=== PATIENT | female | born 1955 | race Hispanic/Latino ===

== ENCOUNTER 2018-04-16 05:47 | Observation (INO) | payer OTHER, MEDICARE ==
[2018-04-16] MEDS ORDERED: ECOTRIN PO ONE (06:12)
[2018-04-16 06:54] LABS: Basophils # (Auto) 0.1 K/mm3 (0.0-0.1); Basophils % (Auto) 1.2 % (0.0-1.8); Eosinophils # (Auto) 0.3 K/mm3 (0.0-0.4); Eosinophils % (Auto) 3.9 % (0.0-4.3); Hematocrit 42.7 % (30.3-42.9); Hemoglobin 14.1 gm/dl (10.1-14.3); Lymphocytes # (Auto) 2.8 K/mm3 (1.2-5.4); Lymphocytes % (Auto) 36.6 % (13.4-35.0); Mean Corpuscular HGB Conc 33 % (30-34); Mean Corpuscular Hemoglobin 32 pg (28-32); Mean Corpuscular Volume 97 fl (79-97); Monocytes # (Auto) 0.7 K/mm3 (0.0-0.8); Monocytes % (Auto) 8.5 % (0.0-7.3); Platelet Count 180 K/mm3 (140-440); Red Cell Distribution Width 13.9 % (13.2-15.2)
[2018-04-16] MEDS ORDERED: NACL 0.9% 500 ML 500 ML IV SCH (07:00)
[2018-04-16 07:06] LABS: Calcium 9.6 mg/dL (8.4-10.2); INR 0.87 (0.87-1.13)
[2018-04-16] MEDS ORDERED: HEPARIN/NS 5000 UNIT/500ML(CATH LAB) 1,000 ML IR ONE (07:42)
[2018-04-16] MEDS ORDERED: CALAN ONE (07:43)
[2018-04-16] MEDS ORDERED: HEPARIN 10,000 UNITS/10 ML ONE (07:43)
[2018-04-16] MEDS ORDERED: NITROGLYCERIN SYRINGE 3 ML ONE (07:43)
[2018-04-16] MEDS ORDERED: XYLOCAINE 2% INFILTRATI ONE (07:43)
[2018-04-16] MEDS ORDERED: SUBLIMAZE ONE (07:44)
[2018-04-16] MEDS ORDERED: VERSED ONE (07:44)
[2018-04-16] MEDS ORDERED: ATROPINE 0.1% (CARDIAC) ONE (08:20)
[2018-04-16] MEDS ORDERED: NEO SYNEPHRINE/NS Syringe(OR USE) IV ONE (08:21)
[2018-04-16] MEDS ORDERED: INTROPIN DRIP 800 MG/D5W 250 ML 800 MG/250 ML BAG IV ONE (08:21)
[2018-04-16] MEDS ORDERED: NACL 0.9% 50 ML ONE (08:32)
[2018-04-16] MEDS: ANGIOMAX IV ONE ×2 (08:37→08:42)
[2018-04-16] MEDS ORDERED: HEPARIN/NS 5000 UNIT/500ML(CATH LAB) 500 ML IR ONE (08:46)
[2018-04-16] MEDS ORDERED: AGGRASTAT DRIP (12.5 MG/250 ML) 12,500 MCG/250 ML BAG IV ONE (08:59)
[2018-04-16] MEDS ORDERED: EFFIENT PO ONE ×2 (09:00→09:21)
[2018-04-16] MEDS ORDERED: ALUM-MAG HYDROX-SIMETH 200-200-20MG/5ML ONE (09:19)
--- NOTE | 2018-04-16 09:40 | Cardiac Catherization Report ---
CARDIAC CATHETERIZATION INDICATION FOR PROCEDURE: The patient is a very pleasant 62-year-old female with history of coronary artery disease, PCI, presents to the office with unstable angina, continues to have recurrent chest pain. We discussed the options. We will proceed with left heart catheterization. Risks, benefits, alternatives discussed at length prior to obtaining informed consent. PROCEDURE IN DETAIL: The patient was brought to the laborer tanbark in a postabsorptive state, prepped and draped in sterile fashion. Reuben's test in right hand was normal. A 2 mL of 2% lidocaine used to anesthetize the right wrist. A standard 6-Malaysian hydrophilic sheath used to cannulate the right radial artery via modified Seldinger technique. All exchanges were performed to exchange a J-tip guidewire. JL3.5 catheter used to engage the left main. No dampening or ventricularization. Cineangiography performed in all projections. JR4 catheter used to cross the aortic valve under fluoroscopic guidance. Left ventriculography performed in 30 PARRA and 30 [place] projections via hand injections, catheter flushed. Manual pullback performed with continuous pressure monitoring. Catheter used to engage the right coronary. No dampening or ventricularization. The patient became hypotensive and bradycardic upon injection. The patient was given IV fluid and atropine as well as one dose of pressor. The patient stabilized at this point. DATA: Left ventriculography reveals normal left ventricular systolic performance, estimated ejection fraction of 55% to 60%. No evidence of aortic stenosis. Aortic pressure is 140/70, LV pressure is 140, LVEDP of 18 mmHg. The patient remained in normal sinus rhythm throughout the procedure. CORONARY ANATOMY: This is a right dominant system. Left main without significant disease, bifurcates in left anterior descending and left circumflex. The left circumflex is moderate size vessel, courses AV groove, distally gives off an OM trunk, no significant disease, scattered luminal irregularities. LAD is a moderate sized vessel, courses anterior intergroove, wraps around the apex. There is a stent in the mid LAD, which is widely patent, 20-25% in-stent restenosis at the proximal edge of the stent, proximal LAD with 25% stenosis. The right coronary is patent proximally, has a 90% stenosis in the distal segment of the mid right coronary. At this point, given the patient's bradycardic chest pain and hypotension with right coronary injection, 90% right coronary stenosis, decided to proceed with PCI. Angiomax given already with aspirin loaded with Effient. Abnormal ACT confirmed. A [place] wire was used to cross the lesion without difficulty. A 2.5 x 12 balloon used to predilate the lesion without difficulty. We had some difficulty delivering a stent. I used a alvarado wire, an [place] wire. We were able to deliver 2.5 x 12 stent deployed at 12 MARÍA for 30 seconds. Excellent angiographic result. Intravascular ultrasound was used and multiple passes were made. Additionally, we used a 3.0 x 12 balloon to post-dilate the vessel. Excellent angiographic and endoscopic results. No complications. CONCLUSIONS: 1. Successful IVUS guided PCI of mid right coronary, 90% to 0%, Resolute 2.5 x 12 postdilated to 3.0. Initial angiography resulted in hypotension, bradycardia, dynamic ST changes and chest pain. I believe this is the culprit lesion. Successful PCI. 2. Nonobstructive disease in the left system including patent mid LAD stent. 3. Preserved LV function. At this point, the patient is clinically stable, chest pain free. Effient, aspirin, statin therapy. Single bolus of Aggrastat. Right radial site looks good. Discharge in a.m. Results of procedure explained at length to the patient and . All questions and concerns were addressed. JOB# [id number] REYNA/MARILUZ
[2018-04-16] MEDS ORDERED: NITROSTAT SL PRN (11:59)
--- NOTE | 2018-04-16 12:24 | Cardiac Catherization Report ---
ADDENDUM I directly supervised the administration of moderate sedation with fentanyl and Versed from 08:14 a.m. to 09:00 a.m. JOB# [id number] SBM/NTS
[2018-04-16] MEDS ORDERED: REMERON PO SCH (18:00)
[2018-04-16] MEDS ORDERED: PRAVACHOL PO SCH (22:00)
[2018-04-16] MEDS: RANEXA ER PO SCH (22:30)
[2018-04-16] MEDS: PEPCID PO SCH (22:30)
[2018-04-17 07:51] LABS: Basophils # (Auto) 0.1 K/mm3 (0.0-0.1); Basophils % (Auto) 0.8 % (0.0-1.8); Eosinophils # (Auto) 0.2 K/mm3 (0.0-0.4); Eosinophils % (Auto) 3.5 % (0.0-4.3); Hemoglobin 13.9 gm/dl (10.1-14.3); Lymphocytes # (Auto) 2.5 K/mm3 (1.2-5.4); Lymphocytes % (Auto) 36.4 % (13.4-35.0); Mean Corpuscular HGB Conc 34 % (30-34); Mean Corpuscular Hemoglobin 33 pg (28-32); Mean Corpuscular Volume 97 fl (79-97); Monocytes # (Auto) 0.6 K/mm3 (0.0-0.8); Monocytes % (Auto) 8.9 % (0.0-7.3); Platelet Count 166 K/mm3 (140-440); Red Blood Count 4.24 M/mm3 (3.65-5.03); Red Cell Distribution Width 13.8 % (13.2-15.2)
--- NOTE | 2018-04-17 08:16 | XRay Report ---
PORTABLE CHEST INDICATION: Post PCI. COMPARISON: 10/29/2015 FINDINGS: Portable, frontal chest radiograph again demonstrates normal cardiomediastinal silhouette, clear lungs and mild scalloping/eventration of the right hemidiaphragm, approximately 2 cm higher than the left. Stable bony degenerative changes. EKG leads. CONCLUSION: No acute chest process, as described. Thank you for the opportunity to participate in this patient's care.
[2018-04-17 08:19] LABS: Creatine Kinase MB 2.3 ng/mL (0.0-4.0)
[2018-04-17 08:20] LABS: Calcium 9.3 mg/dL (8.4-10.2)
[2018-04-17 08:48] VITALS: BP 116/56
[2018-04-17] MEDS ORDERED: IMDUR PO SCH ×2 (10:00→14:00)
[2018-04-17] MEDS ORDERED: VITAMIN C PO SCH (10:00)
[2018-04-17] MEDS ORDERED: ZYLOPRIM PO SCH (10:00)
[2018-04-17] MEDS ORDERED: TENORMIN PO SCH ×2 (10:00→14:00)
[2018-04-17] MEDS ORDERED: DITROPAN PO SCH (10:00)
[2018-04-17] MEDS ORDERED: BABY ASPIRIN PO SCH (10:00)
[2018-04-17] MEDS ORDERED: EFFIENT PO SCH (10:08)
--- NOTE | 2018-04-17 10:41 | Short Stay Summary ---
Short Stay Documentation Date of service: 04/17/18 - History H&P: obtained from office - Allergies and Medications Current Medications: Allergies guaifenesin [From Humibid] Allergy (Verified 10/29/15 07:02) Unknown oxycodone HCl [From Percocet] Allergy (Verified 04/16/18 06:48) Itching denies allergies to percocet Penicillins Allergy (Verified 10/29/15 07:02) Swelling ALL TYPE OF MEDICAL TAPES Allergy (Uncoded 04/16/18 05:49) SKIN BECOME RED AND RAW Home Medications Medication Instructions Recorded Confirmed Last Taken Type Abatacept [Orencia] 125 mg IV Q4W 10/29/15 04/16/18 02/24/18 History Ascorbic Acid [Vitamin C] 500 mg PO QDAY 10/29/15 04/16/18 04/16/18 04:00 History Aspirin [Aspirin BABY CHEW TAB] 81 mg PO QDAY 10/29/15 04/16/18 04/15/18 History Atenolol/Chlorthalidone [Tenoretic 1 tab PO DAILY 10/29/15 04/16/18 04/16/18 04: 00 History 50-25] Clopidogrel Bisulfate [Clopidogrel] 75 mg PO DAILY 10/29/15 04/16/18 04/16/18 04 :00 History Desvenlafaxine Succinate [Pristiq 50 mg PO DAILY 10/29/15 04/16/18 04/15/18 History ER] Ezetimibe/Simvastatin (Nf) 1 tab PO QHS 10/29/15 04/16/18 04/15/18 History [Vytorin 10-40 mg (Nf)] Fluticasone Propionate [Flovent 2 puff IH DAILY 10/29/15 04/16/18 10/28/15 History Diskus] 2 Fluticasone/Salmeterol [Advair 2 puff INHALATION BID 10/29/15 04/16/18 10/28/15 History Diskus 250-50 mcg] 2 HYDROcodone/ACETAMINOPHEN [Vicodin 1 tab PO TID PRN 10/29/15 04/16/18 10/28/15 History HP 10-300 mg TAB] 1 ISOSORBIDE MONOnitrate [Imdur ER] 30 mg PO DAILY 10/29/15 04/16/18 10/28/15 History 30mg Lidocaine [Lidoderm] 700 mg TP DAILY PRN 10/29/15 04/16/18 10/28/15 History 700mg Multivit-Min/Iron Fum/Folic AC 1 tab PO DAILY 10/29/15 04/16/18 10/28/15 History [Zncix-Hnqnqna-Avjccjgr Tablet] 1 Nitroglycerin [Nitrostat] 0.4 mg SL Q5M PRN 10/29/15 04/16/18 Unknown History Ranitidine HCl [Zantac 150 MG TAB] 150 mg PO BID 10/29/15 04/16/18 04/16/18 04: 00 History Ranolazine [Ranexa] 500 mg PO BID 10/29/15 04/16/18 04/16/18 04:00 History Zolpidem [Ambien] 10 mg PO QHS 10/29/15 04/16/18 10/28/15 History 10MG sulfaSALAzine [Sulfasalazine] 500 mg PO BID 10/29/15 04/16/18 04/16/18 04:00 History Allopurinol [Zyloprim] 300 mg PO QDAY 04/16/18 04/16/18 04/16/18 04:00 History Mirtazapine [Remeron] 15 mg PO QPM 04/16/18 04/16/18 04/15/18 History Oxybutynin [Ditropan] 5 mg PO DAILY 04/16/18 04/16/18 04/16/18 04:00 History Vitamin D (Nf) 50,000 units PO QWEEK 04/16/18 04/16/18 04/12/18 History Active Medications Allopurinol (Zyloprim) 300 mg PO QDAY [facility] Ascorbic Acid (Vitamin C) 500 mg PO QDAY [facility] Aspirin (Baby Aspirin) 81 mg PO QDAY [facility] Atenolol (Tenormin) 25 mg PO QDAY [facility] Famotidine (Pepcid) 20 mg PO BID [facility] Last Admin: 04/16/18 22:30 Dose: 20 mg Isosorbide Mononitrate (Imdur) 15 mg PO DAILY [facility] Mirtazapine (Remeron) 15 mg PO QPM [facility] Last Admin: 04/16/18 17:16 Dose: 15 mg Nitroglycerin (Nitrostat) 0.4 mg SL Q5M PRN PRN Reason: Angina Oxybutynin Chloride (Ditropan) 5 mg PO DAILY [facility] Prasugrel (Effient) 10 mg PO QDAY [facility] Pravastatin Sodium (Pravachol) 40 mg PO QHS [facility] Last Admin: 04/16/18 22:30 Dose: 40 mg Ranolazine (Ranexa Er) 500 mg PO BID [facility] Last Admin: 04/16/18 22:30 Dose: 500 mg - Physical exam General appearance: no acute distress Integumentary: no rash, no growths, no abnormal pigmentation HEENT: Atraumatic, PERRLA Lungs: Clear to auscultation Heart: Regular rate, Normal S1, Normal S2 Gastrointestinal: normal, normoactive bowel sounds Extremities: no ischemia, pulses intact, pulses symmetrical, No edema, normal temperature, normal color Neurological: Normal gait, Normal speech, Strength at 5/5 X4 ext - Brief post op/procedure progress note Date of procedure: 04/16/18 Pre-op diagnosis: CAD Post-op diagnosis: same Procedure: LHC with PCI - see dictated cath report Anesthesia: local Estimated blood loss: none Condition: stable - Hospital course Hospital course: Pt presented for scheduled elective LHC and subsequently underwent PCI of RCA. She was admitted for observation overnight. She had some transient asymptomatic hypotension overnight and thus her anti-hypertensive regimen was adjusted. She is currently clinically stable for discharge. - Disposition Condition at discharge: Stable Disposition: DC-01 TO HOME OR SELFCARE - Discharge Diagnoses (1) CAD (coronary artery disease) Status: Chronic (2) Stented coronary artery Status: Chronic (3) HTN (hypertension) Status: Chronic (4) Hyperlipidemia Status: Chronic Short Stay Discharge Plan Activity: advance as tolerated Diet: low fat, low cholesterol, low salt Wound: open to air, keep clean and dry, per your surgeon's advice Follow up with: GUERA GAUTAM MD [Primary Care Provider] - 7 Days CARL AGUILAR MD [Staff Physician] - 7 Days (04/26/2018 @ 9:45AM) Forms: CardCat PCI D/C Instructions Prescriptions: Pravastatin [Pravachol] 40 mg PO QHS #30 tablet Atenolol [Tenormin] 25 mg PO QDAY #30 tablet ISOSORBIDE MONOnitrate [Imdur ER] 15 mg PO DAILY #30 tablet Prasugrel [Effient] 10 mg PO QDAY #30 tablet
[2018-04-17] MEDS: PEPCID PO SCH (10:51)
[2018-04-17] MEDS: RANEXA ER PO SCH (10:55)
== END 2018-04-17 14:19 | disposition home or self-care (01) ==
LOC: CATHLABREC 05:47 → 4A 10:08
PROVIDERS: ADMIT Internal Medicine; ATTEND Internal Medicine
DX: I25.10 Atherosclerotic heart disease of native coronary artery without angina pectoris (principal); I10 Essential (primary) hypertension; E78.5 Hyperlipidemia, unspecified
CPT/HCPCS: 36415; 71045; 80048; 82550; 82553; 84484; 85025; 85347; 85610; 85730; 92978; 93005; 93010; 93458; 96374; 96375; A9270; C1725; C1753; C1769; C1874; C1887; C1894; C9600; G0378; J0461; J0583; J1265; J1644; J2250; J2370; J3010; J3246; J7040; 92928; Q9967

== ENCOUNTER 2019-09-26 09:19 | Outpatient (CLI) | payer MEDICARE ==
--- NOTE | 2019-09-29 14:09 | Mammography Report ---
DIGITAL SCREENING MAMMOGRAM WITH CAD, 09/26/2019 INDICATION: Routine screening mammography. TECHNIQUE: Digital bilateral 2D mammography was obtained in the craniocaudal and mediolateral obliq ue projections. This examination was interpreted with the benefit of Computer-Aided Detection analysi s. COMPARISON: 09/25/2018 FINDINGS: Breast Density: The breasts are almost entirely fatty. There is no evidence of dominant mass, suspicious calcifications or architectural distortion in eithe r breast. IMPRESSION: No mammographic evidence of malignancy. Follow up recommendation: Routine yearly BI-RADS Category 1: Negative. A "normal" or negative report should not discourage follow up or biopsy of a clinically significant f inding. A written summary of these findings will be mailed to the patient. The patient will be entered into a mammography reporting system which will generate a reminder letter for the patient's next appointmen t at the appropriate interval. The [employer] recommends yearly mammograms starting at age 40 and continuing as l aditya as a woman is in good health. Breast MRI is recommended for women with an approximate 20-25% or greater lifetime risk of breast cancer, including women with a strong family history of breast or ova kamilla cancer or who have been treated for Hodgkin's disease. Signer Name: Manolo Pierce MD Signed: 09/29/2019 2:05 PM Workstation Name: [id number]
== END 2019-09-26 09:20 | disposition home or self-care (01) ==
LOC: SPVWC 09:19
PROVIDERS: ATTEND Obstetrics & Gynecology Gynecology
DX: Z12.31 Encounter for screening mammogram for malignant neoplasm of breast (principal); I25.10 Atherosclerotic heart disease of native coronary artery without angina pectoris; I10 Essential (primary) hypertension; E78.5 Hyperlipidemia, unspecified; K21.9 Gastro-esophageal reflux disease without esophagitis; M19.90 Unspecified osteoarthritis, unspecified site
CPT/HCPCS: 77067

== ENCOUNTER 2020-10-05 15:56 | Outpatient (CLI) | payer MEDICARE ==
--- NOTE | 2020-10-05 17:03 | Mammography Report ---
DIGITAL SCREENING MAMMOGRAM WITH CAD, 10/05/2020 CLINICAL INFORMATION / INDICATION: Routine screening mammography. TECHNIQUE: Digital bilateral 2D mammography was obtained in the craniocaudal and mediolateral obliqu e projections. This examination was interpreted with the benefit of Computer-Aided Detection analysis . COMPARISON: 09/26/2019, 09/25/2018 FINDINGS: Breast Density: The breasts are almost entirely fatty. No dominant mass, suspicious calcifications, or architectural distortion in either breast. IMPRESSION: No mammographic evidence of malignancy. Follow up recommendation: Routine yearly BI-RADS Category 1: Negative. A "normal" or negative report should not discourage follow up or biopsy of a clinically significant f inding. A written summary of these findings will be mailed to the patient. The patient will be entered into a mammography reporting system which will generate a reminder letter for the patient's next appointmen t at the appropriate interval. The [employer] recommends yearly mammograms starting at age 40 and continuing as l aditya as a woman is in good health. Breast MRI is recommended for women with an approximate 20-25% or greater lifetime risk of breast cancer, including women with a strong family history of breast or ova kamilla cancer or who have been treated for Hodgkin's disease. Signer Name: Stanley Cartwright MD Signed: 10/05/2020 4:58 PM Workstation Name: [id number]
== END 2020-10-05 15:57 | disposition home or self-care (01) ==
LOC: SPVWC 15:56
PROVIDERS: ATTEND Obstetrics & Gynecology Gynecology
DX: Z12.31 Encounter for screening mammogram for malignant neoplasm of breast (principal)
CPT/HCPCS: 77067

== ENCOUNTER 2021-11-30 09:08 | Outpatient (CLI) | payer MEDICARE ==
--- NOTE | 2021-11-30 10:48 | Mammography Report ---
DIGITAL SCREENING MAMMOGRAM WITH CAD, 11/30/2021 CLINICAL INFORMATION / INDICATION: Routine screening mammography. TECHNIQUE: Digital bilateral 2D mammography was obtained in the craniocaudal and mediolateral obliqu e projections. This examination was interpreted with the benefit of Computer-Aided Detection analysis . COMPARISON: 09/26/2019 FINDINGS: Breast Density: The breasts are almost entirely fatty. No dominant mass, suspicious calcifications, or architectural distortion in either breast. Overall, no significant interval change. IMPRESSION: No mammographic evidence of malignancy. Follow up recommendation: Routine yearly BI-RADS Category 1: NEGATIVE A "normal" or negative report should not discourage follow up or biopsy of a clinically significant f inding. A written summary of these findings will be mailed to the patient. The patient will be entered into a mammography reporting system which will generate a reminder letter for the patient's next appointmen t at the appropriate interval. The [employer] recommends yearly mammograms starting at age 40 and continuing as l aditya as a woman is in good health. Breast MRI is recommended for women with an approximate 20-25% or greater lifetime risk of breast cancer, including women with a strong family history of breast or ova kamilla cancer or who have been treated for Hodgkin's disease. Signer Name: Jordana Simental MD Signed: 11/30/2021 10:44 AM Workstation Name: [id number]
--- NOTE | 2021-11-30 10:59 | Mammography Report ---
DEXA BONE DENSITY SCAN INDICATION / CLINICAL INFORMATION: SCREENING FOR OSTEOPOROSIS. 66 years Female COMPARISON: 08/16/2011 LUMBAR SPINE, L1-L4: - Bone mineral density (BMD) = 1.194 g/cm2. - T-score = 1.3 - Z-score = 3.2 Change (%) since most recent prior (if available): -1.9 LEFT HIP, TOTAL : - Bone mineral density (BMD) = 0.924 g/cm2. - T-score = -0.1 - Z-score = 1.2 Change (%) since most recent prior (if available): 3.1 IMPRESSION: 1. WHO Classification: Normal bone density. Fracture Risk: Not Increased. 2. 10-Year Fracture Risk (FRAX) = Major Osteoporotic Not reported.% / Hip: Not reported.% FRAX generally not reported for patients with normal or osteoporotic BMD, in gqc-kotgpls-yogsdex lien ents younger than age 50, or in patients undergoing pharmacotherapy BMD Reporting Guidelines (ISCD, 2015) BMD Reporting in Postmenopausal Women and in Men Age 50 and Older - T-scores are preferred. - The WHO densitometric classification is applicable. BMD Reporting in Females Prior to Menopause and in Males Younger Than Age 50 - Z-scores, not T-scores, are preferred. This is particularly important in children. - A Z-score of -2.0 or lower is defined as below the expected range for age, and a Z-score above -2.0 is within the expected range for age. - Osteoporosis cannot be diagnosed in men under age 50 on the basis of BMD alone. - The WHO diagnostic criteria may be applied to women in the menopausal transition. http://www.iscd.org/official-positions/7079-vdil-bseicbsw-positions-adult/ Signer Name: Cory Morales MD Signed: 11/30/2021 10:55 AM Workstation Name: [email or web address]
== END 2021-11-30 09:09 | disposition home or self-care (01) ==
LOC: SPVWC 09:08
PROVIDERS: ATTEND Obstetrics & Gynecology Gynecology
DX: Z12.31 Encounter for screening mammogram for malignant neoplasm of breast (principal); M81.0 Age-related osteoporosis without current pathological fracture
CPT/HCPCS: 77067; 77080

== ENCOUNTER 2022-04-14 06:29 | Day surgery (SDC) | payer MEDICARE ==
[2022-04-14] MEDS ORDERED: ASPIRIN EC 325 MG TAB PO NR (06:51)
[2022-04-14 07:10] LABS: Hematocrit 41.2 % (30.3-42.9); Hemoglobin 13.9 gm/dl (10.1-14.3); Mean Corpuscular HGB Conc 34 % (30-34); Mean Corpuscular Volume 100 fl (79-97); Platelet Count 171 K/mm3 (140-440); Red Blood Count 4.11 M/mm3 (3.65-5.03); Red Cell Distribution Width 13.4 % (13.2-15.2)
[2022-04-14 07:20] LABS: INR 0.86 (0.87-1.13)
[2022-04-14 07:21] LABS: Partial Thromboplastin Time 29.5 Sec. (24.2-36.6)
[2022-04-14 07:23] LABS: Calcium 9.3 mg/dL (8.4-10.2)
[2022-04-14 07:54] LABS: Band Neutrophils # (Manual) 0.1 K/mm3; Basophils % (Manual) 0 % (0.0-1.8); Total Cells Counted 100
[2022-04-14] MEDS: SODIUM CHLORIDE 0.9% 500 ML 500 ML IV SCH ×2 (08:09→09:00)
[2022-04-14] MEDS ORDERED: HEPARIN/NS 5000 UNIT/500ML 1,000 ML IR ONE (08:16)
[2022-04-14 08:17] LABS: Platelet Estimate Consistent w Auto; RBC Morphology Normal
[2022-04-14] MEDS ORDERED: NITROGLYCERIN SYRINGE 3 ML ONE (08:17)
[2022-04-14] MEDS ORDERED: fentaNYL 100 MCG/2 ML INJ ONE (08:17)
[2022-04-14] MEDS ORDERED: VERAPAMIL 5 MG/2 ML INJ ONE (08:17)
[2022-04-14] MEDS ORDERED: LIDOCAINE (1%) 10 MG/1 ML VIAL 20 ML MDV ONE (08:18)
[2022-04-14] MEDS ORDERED: ATROPINE 0.1% (1 MG/10 ML) CARDIAC SYRINGE ONE (08:18)
--- NOTE | 2022-04-14 08:57 | Electrocardiograph Report ---
[facility] Test Date: 2022-04-14 Test Time: 07:16:21 Pat Name: SOSA COTTON Department: Room: Gender: F Quantitative Developer: BERTO : 1955 Requested By: CHARLES JONES Order Number: [id number] Reading MD: Charles Jones Measurements Intervals [place] Rate: 70 P: 68 DE: 157 QRS: 69 QRSD: 82 T: 26 QT: 403 QTc: 437 Interpretive Statements Sinus rhythm No previous ECG available for comparison Electronically Signed On 04-14-2022 8:56:55 EDT by Charles Jones
[2022-04-14 08:58] LABS: Calcium 9.4 mg/dL (8.4-10.2)
[2022-04-14] MEDS: MIDAZOLAM 2 MG/2 ML INJ ONE ×4 (09:04→09:25)
[2022-04-14] MEDS: HEPARIN 10,000 UNITS/10 ML VIAL ONE ×2 (09:06→09:19)
[2022-04-14] MEDS ORDERED: PRASUGREL 10 MG TAB PO ONE (09:36)
[2022-04-14] MEDS ORDERED: traMADol 50 MG TAB PO PRN (09:53)
[2022-04-14] MEDS ORDERED: HYDROcodone/ACETAMINOPHEN 5-325 MG TAB PO PRN (09:53)
--- NOTE | 2022-04-14 09:55 | Short Stay Summary ---
Short Stay Documentation Date of service: 04/14/22 - History H&P: obtained from office - Allergies and Medications Current Medications: Allergies adalimumab [From Humira] Allergy (Verified 04/14/22 07:50) Hives guaifenesin [From Humibid] Allergy (Verified 04/14/22 07:50) Unknown Penicillins Allergy (Verified 10/29/15 07:02) Swelling ALL TYPE OF MEDICAL TAPES Allergy (Uncoded 04/16/18 05:49) SKIN BECOME RED AND RAW Home Medications Medication Instructions Recorded Confirmed Last Taken Type Ascorbic Acid [Vitamin C] 500 mg PO QDAY 10/29/15 04/14/22 04/13/22 History Fluticasone Propionate [Flovent 2 puff IH DAILY 10/29/15 04/14/22 04/13/22 History Diskus] Multivit-Min/Iron Fum/Folic AC 1 tab PO DAILY 10/29/15 04/14/22 04/13/22 History [Mfxfw-Bebzuip-Lwsoatpw Tablet] sulfaSALAzine [Sulfasalazine] 500 mg PO BID 10/29/15 04/14/22 04/13/22 History Mirtazapine [Remeron] 15 mg PO QPM 04/16/18 04/14/22 04/13/22 History allopurinoL [Zyloprim] 100 mg PO QDAY 04/16/18 04/14/22 04/13/22 History Aspirin [Aspirin BABY CHEW TAB] 81 mg PO QDAY tab.chew 04/17/18 04/14/22 04/13/22 Rx Prasugrel [Effient] 10 mg PO QDAY #30 tablet 04/17/18 04/14/22 04/13/22 Rx Pravastatin [Pravachol] 40 mg PO QHS #30 tablet 04/17/18 04/14/22 04/13/22 Rx Baclofen [Lioresal] 10 mg PO TID 04/14/22 04/14/22 1 Week Ago History ~04/07/22 Certolizumab Pegol [Cimzia] 400 mg SQ QWEEK 04/14/22 04/14/22 04/13/22 History Citalopram [celeXA] 20 mg PO QDAY 04/14/22 04/14/22 04/13/22 History Ezetimibe [Zetia] 10 mg PO QDAY 04/14/22 04/14/22 04/13/22 History HYDROcodone/ACETAMINOPHEN 1 each PO TID PRN 04/14/22 04/14/22 04/13/22 History [Verdrocet 2.5-325 mg TAB] Omeprazole Magnesium [PriLOSEC Otc] 20 mg PO QDAY 04/14/22 04/14/22 04/13/22 History Active Medications Hydrocodone Bitart/Acetaminophen (Hydrocodone/Acetaminophen 5-325 Mg Tab) 1 each PO Q4H PRN PRN Reason: Pain, Moderate (4-6) Sodium Chloride (Nacl 0.9% 500 Ml) 500 mls @ 50 mls/hr IV DIRECT JAHAIRA Stop: 04/14/22 16:59 Last Admin: 04/14/22 08:09 Dose: 50 mls/hr Tramadol HCl (Tramadol 50 Mg Tab) 50 mg PO Q4H PRN PRN Reason: Pain, Mild (1-3) - Physical exam Integumentary: other (dressing no bleeding, or hematoma) - Brief post op/procedure progress note Date of procedure: 04/14/22 Pre-op diagnosis: CAD Post-op diagnosis: same Anesthesia: local Estimated blood loss: minimal - Hospital course Hospital course: Patient presents today for cardiac cath. Patient found to have severe single- vessel coronary artery disease with culprit of 90% proximal LAD. Successful placement of 1 TERENCE. Patient reports being chest pain-free. Patient to continue dual antiplatelet therapy with aspirin and Effient. Patient meets same-day discharge criteria. Patient to be discharged home today and follow-up in the office. Plan of care discussed with patient who verbalized understanding and acknowledgment - Disposition Condition at discharge: Good Disposition: 01 HOME / SELF CARE / HOMELESS - Discharge Diagnoses (1) Chest pain Status: Acute (2) CAD (coronary artery disease) Status: Chronic (3) HTN (hypertension) Status: Chronic (4) History of PTCA Status: Chronic (5) Hyperlipidemia Status: Chronic (6) Stented coronary artery Status: Chronic Short Stay Discharge Plan Activity: advance as tolerated Diet: low fat, low cholesterol, low salt Wound: keep clean and dry, per your surgeon's advice Follow up with: GUERA GAUTAM MD [Primary Care Provider] - 7 Days CARL AGUILAR MD [Staff Physician] - 05/08/22 1:45 pm (Patient to follow-up appoint with Dr. Aguilar on 05/08/2022 at 1:45 PM)
--- NOTE | 2022-04-14 10:13 | Cardiac Catherization Report ---
DATE OF PROCEDURE: 04/14/2022 CARDIAC CATHETERIZATION REFERRING PHYSICIAN: Dr. Charles Jones. INDICATIONS FOR PROCEDURE: The patient is a very pleasant 66-year-old female who presents with unstable angina, recurrent chest tightness despite normal stress test, referred for left heart catheterization. Risks, benefits and alternatives discussed at length prior to obtaining informed consent. PROCEDURE IN DETAIL: The patient was brought to laborer wrecking and salvaging in a postabsorptive state, prepped and draped in sterile fashion. Reuben's test in right hand is normal. 2 mL of 2% lidocaine used to anesthetize the right wrist. A standard 6-American hydrophilic sheath used to cannulate the right radial artery via modified Seldinger technique. All exchanges performed to exchange a J-tip guidewire. A JL 3.5 catheter was used to engage the left main. No dampening or ventricularization. Cineangiography performed in all projections. Next, catheter removed from the body over a wire. DATA: Aortic pressure is 140/70, LV pressure is 140, LVEDP of 16 mmHg. Left ventriculography reveals normal systolic performance, estimated ejection fraction 55-60%. No evidence of aortic stenosis. CORONARY ANATOMY: This is a right dominant system. Left main without significant disease, bifurcates into left anterior descending and left circumflex. Left circumflex, moderate sized vessel, courses AV groove. No significant disease. LAD is a moderate sized vessel, courses anterior intergroove, wraps around the apex. A stent in the mid LAD is widely patent. There is a 90-95% ulcerated stenosis in the proximal LAD, rather discrete stenoses. This is the culprit vessel. Right coronary is a moderate sized vessel, courses AV groove. Stent in the distal right coronary is widely patent. No significant disease in the right coronary. Given culprit LAD lesion, we turned our attention to PCI. Heparin loaded. Abnormal ACT confirmed. The patient already on aspirin and Effient. An EBU 3.5 guide used to engage left main without difficulty. A [place] wire to cross the lesion. We predilated the lesion with 2.5 x 12 compliant balloon. Next, we used a 2.75 x 18 Jerad drug-eluting stent deployed at 14 MARÍA for 30 seconds. Excellent angiographic result. Next, we used an IVUS to interrogate the stent from within and the distal to the stent as well as obviously proximal LAD and left main. Multiple passes were made. This reveals a well-opposed and well-expanded stent. Final angiographic result is excellent. RIZWANA 3 flow. The patient has no chest pain throughout, tolerated the procedure well. I directly supervised the administration of fentanyl and Versed for moderate sedation from 9:04 a.m. to 9:40 a.m. No immediate complications identified. CONCLUSIONS: 1. Severe single vessel coronary artery disease with culprit 90% proximal LAD stenosis in the milieu of unstable angina. 2. Successful IVUS-guided PCI with placement of drug-eluting stent (Jerad 2.75 x 18) with excellent final angiographic and ultrasonographic results. 3. Patent LAD stent. 4. No obstructive disease noted in the left circumflex. 5. Patent right coronary distal stent with no obstructive disease noted in the right coronary. 6. Normal left ventricular systolic performance, estimated ejection fraction 55-60%. 7. No evidence of aortic stenosis. 8. Normal LVEDP. The patient is clinically stable, chest pain free. Likely meets criteria for same day discharge. Repeat potassium is pending. Stable overall cardiac status, doing well now. Follow up with me in the office. Continue Effient and aspirin therapy. TID: [id number] RECEIPT: [id number] SBM/RUST
--- NOTE | 2022-04-14 11:19 | Electrocardiograph Report ---
[facility] Test Date: 2022-04-14 Test Time: 10:05:33 Pat Name: SOSA COTTON Department: Room: Gender: F Security Infrastructure Engineer: BERTO : 1955 Requested By: GABRIEL BLAIR Order Number: [id number] Reading MD: Charles Jones Measurements Intervals [place] Rate: 70 P: 68 ND: 165 QRS: 62 QRSD: 79 T: 0 QT: 425 QTc: 457 Interpretive Statements Sinus rhythm Compared to ECG 04/14/2022 07:16:21 No significant changes Electronically Signed On 04-14-2022 11:18:34 EDT by Charles Jones
[2022-04-14 15:48] VITALS: BP 133/78
== END 2022-04-14 16:00 | disposition home or self-care (01) ==
LOC: CATHLABREC 06:29
PROVIDERS: ATTEND Internal Medicine
DX: I25.110 Atherosclerotic heart disease of native coronary artery with unstable angina pectoris (principal); R07.89 Other chest pain; R94.39 Abnormal result of other cardiovascular function study; I10 Essential (primary) hypertension; E78.5 Hyperlipidemia, unspecified; J45.909 Unspecified asthma, uncomplicated; K21.9 Gastro-esophageal reflux disease without esophagitis; M19.90 Unspecified osteoarthritis, unspecified site; M79.7 Fibromyalgia; Z88.0 Allergy status to penicillin; Z88.8 Allergy status to other drugs, medicaments and biological substances; Z79.899 Other long term (current) drug therapy; Z79.82 Long term (current) use of aspirin; Z98.61 Coronary angioplasty status; Z98.51 Tubal ligation status; Z96.653 Presence of artificial knee joint, bilateral; Z98.890 Other specified postprocedural states
CPT/HCPCS: 36415; 80048; 85007; 85025; 85610; 85730; 92978; 93005; 93458; 99156; 99157; C1725; C1753; C1769; C1874; C1887; C1894; C9600; J1644; J1815; J2250; J3010; J7040; 92928; J0461; Q9967